=== PATIENT | female | born 1985 | race Caucasian/White ===

== ENCOUNTER 2017-05-26 10:53 | Emergency (ER) | payer OTHER, MEDICAID ==
[~2017-05-26] VITALS: Ht 160 cm; Wt 103.9 kg
[2017-05-26] MEDS ORDERED: SYMBICORT160 MCG/4. INH (11:09)
[2017-05-26] MEDS ORDERED: PROAIR HFA8.5 GM INH (11:09)
[2017-05-26] MEDS ORDERED: TOPAMAX 100 MG100 MG PO (11:09)
[2017-05-26] MEDS ORDERED: CLARITIN10 MG PO (11:10)
[2017-05-26] MEDS ORDERED: PROTONIX 20 MG20 M1 PO (11:10)
[2017-05-26] MEDS ORDERED: FLONASE 0.05%50 MCG NASAL (11:10)
[2017-05-26] MEDS ORDERED: HYDROCHLOROTHIA25 M2 PO (11:10)
[2017-05-26] MEDS ORDERED: IBUPROFEN 800800 M1 PO (12:04)
[2017-05-26] MEDS ORDERED: TRAMADOL 50 MG50 MG PO (12:08)
[2017-05-26 12:20] VITALS: BP 108/61
== END 2017-05-26 12:21 | disposition home or self-care (01) ==
LOC: M.ERS 10:53
DX: S63.502A Unspecified sprain of left wrist, initial encounter (principal); J45.909 Unspecified asthma, uncomplicated; K21.9 Gastro-esophageal reflux disease without esophagitis; J44.9 Chronic obstructive pulmonary disease, unspecified; Z90.710 Acquired absence of both cervix and uterus; Z90.49 Acquired absence of other specified parts of digestive tract; Z98.890 Other specified postprocedural states; Z88.5 Allergy status to narcotic agent; Z88.2 Allergy status to sulfonamides; W22.8XXA Striking against or struck by other objects, initial encounter; Y93.89 Activity, other specified; Y92.89 Other specified places as the place of occurrence of the external cause; Y99.8 Other external cause status